=== PATIENT | female | born 1995 | race Caucasian/White ===

== ENCOUNTER 2018-02-08 21:33 | Emergency (ER) | payer SELFPAY ==
[2018-02-08] MEDS ORDERED: Dexamethasone 4 mg/ml Vial ONE (23:12)
== END 2018-02-08 23:26 | disposition home or self-care (01) ==
LOC: ERS 21:33
DX: K08.89 Other specified disorders of teeth and supporting structures (principal)
CPT/HCPCS: 99282; J1100